=== PATIENT | female | born 1960 | race African-American/Black ===

== ENCOUNTER 2016-06-05 10:19 | Emergency (ER) | payer OTHER ==
[~2016-06-05] VITALS: Ht 157.5 cm; Wt 82.6 kg
[~2016-06-05 10:19] MED LIST: AMLO10TA2; CEPH500C; HYDR500T13; LISI40TA; PRAVASTATIN 40 MG; SULF-169
[2016-06-05] MEDS: LORazepam 0.5 MG TAB PO ONE (12:27)
[2016-06-05] MEDS: SODIUM CHLORIDE 0.9% 1,000 ML IV ONE (13:44)
[2016-06-05 15:00] LABS: Albumin 3.4 g/dL (3.4-5.0); Anion Gap 15 (5-15); Aspartate Aminotransferase 24 U/L (15-37); BUN/Creatinine Ratio 18.2; Blood Urea Nitrogen 20 mg/dL (7-18); Calcium 8.5 mg/dL (8.5-10.1); Carbon Dioxide 22 mmol/L (21-32); Chloride 114 mmol/L (98-107); GFR African American 66 mL/min; GFR Non-African American 54 mL/min; Glucose 138 mg/dL (74-106); Sodium 151 mmol/L (136-145)
[2016-06-05 15:02] LABS: Alkaline Phosphatase 71 U/L (45-117); Bilirubin, Total < 0.1 mg/dL (0.2-1.0); Total Protein 7.5 g/dL (6.4-8.2)
[2016-06-05 15:05] LABS: Basophils # (auto) 0 uL; Basophils % (auto) 0.8 % (0.0-2.0); Eosinophils # (auto) 0 uL; Eosinophils % (auto) 0.3 % (0.0-7.0); Hemoglobin 14.4 g/dL (12.2-16.2); Lymphocytes # (auto) 2.2 uL; Lymphocytes % (auto) 38.3 % (10.0-50.0); Mean Corpuscular Hemoglobin 31.8 pg (28.0-32.0); Mean Corpuscular Hgb Conc. 33.4 g/dL (32.0-36.0); Mean Corpuscular Volume 95.1 fL (80.0-100.0); Mean Platelet Volume 9.2 fL (7.4-10.4); Monocytes # (auto) 0.5 uL; Monocytes % (auto) 8.5 % (0.0-12.0); Neutrophils % (auto) 52.1 % (37.0-80.0); Platelet Count (auto) 297 10^3/uL (140-450); Red Cell Distribution Width 16.8 % (11.6-16.0); White Blood Cell 5.8 10^3/uL (4.4-10.8)
[2016-06-05 17:45] LABS: Urine Bilirubin Negative (Negative); Urine Blood Negative /uL (Negative); Urine Color Yellow (Yellow); Urine Glucose Normal (Normal); Urine Ketone Negative (Negative); Urine Mucus FEW (None Seen); Urine Nitrite Negative (Negative); Urine RBC <1 /hpf (0 - 4); Urine Squamous Epithelial Cell MOD /hpf (<5); Urine Urobilinogen Normal (Negative); Urine pH 5.5 (5.0-8.0)
[2016-06-05 19:52] VITALS: BP 140/74
== END 2016-06-05 21:43 | disposition home or self-care (01) ==
LOC: ER 10:27
DX: F10.120 Alcohol abuse with intoxication, uncomplicated (principal); M19.90 Unspecified osteoarthritis, unspecified site; E78.5 Hyperlipidemia, unspecified; I10 Essential (primary) hypertension; F17.210 Nicotine dependence, cigarettes, uncomplicated; D25.9 Leiomyoma of uterus, unspecified; Y90.9 Presence of alcohol in blood, level not specified; Z98.890 Other specified postprocedural states; Z90.89 Acquired absence of other organs
CPT/HCPCS: 36415; 80053; 80320; 80329; 81001; 85025; 96360; 96361; 99285; G0434

== ENCOUNTER 2017-02-10 15:01 | Observation (INO) | payer OTHER ==
[~2017-02-10] VITALS: Ht 165.1 cm; Wt 81.6 kg
[2017-02-10 15:58] LABS: Urine RBC None Seen /hpf (0 - 4)
[2017-02-10 16:37] LABS: Urine Bilirubin Negative (Negative); Urine Blood Negative /uL (Negative); Urine Color Yellow (Yellow); Urine Glucose Normal (Normal); Urine Hyaline Cast FEW /lpf (0 - 2); Urine Ketone Negative (Negative); Urine Mucus FEW (None Seen); Urine Nitrite Negative (Negative); Urine Squamous Epithelial Cell FEW /hpf (<5); Urine Urobilinogen Normal (Negative)
[2017-02-10] MEDS ORDERED: LORazepam 2MG/ML-1ML VIAL ONE (19:49)
[2017-02-10] MEDS ORDERED: LORazepam 2MG/ML-1ML VIAL IV ONE (20:00)
[2017-02-10] MEDS ORDERED: MVI in SODIUM CHLORIDE 0.9% 1,010 ML IV ONE (20:13)
[2017-02-10] MEDS ORDERED: THIAMINE HCL 100 MG/ML 2ML VIAL IV ONE (20:15)
[2017-02-10] MEDS ORDERED: MVI in SODIUM CHLORIDE 0.9% 1,010 ML ONE (20:27)
[2017-02-10] MEDS: MAGNESIUM SULFATE 1GM/100ML 100 ML IV SCH ×2 (20:30→21:38)
[2017-02-10 20:50] LABS: Basophils # (auto) 0 uL; Basophils % (auto) 0.7 % (0.0-2.0); Eosinophils # (auto) 0.1 uL; Eosinophils % (auto) 0.9 % (0.0-7.0); Hematocrit 40.9 % (36.0-46.0); Hemoglobin 13.3 g/dL (12.2-16.2); Lymphocytes # (auto) 2.7 uL; Lymphocytes % (auto) 46.3 % (10.0-50.0); Mean Corpuscular Hemoglobin 32.9 pg (28.0-32.0); Mean Corpuscular Hgb Conc. 32.6 g/dL (32.0-36.0); Mean Corpuscular Volume 100.9 fL (80.0-100.0); Mean Platelet Volume 8.7 fL (6.9-10.8); Monocytes # (auto) 0.5 uL; Monocytes % (auto) 9.1 % (0.0-12.0); Neutrophils # (auto) 2.6 uL; Nucleated Red Blood Cells % 0.1 %; Platelet Count (auto) 270 10^3/uL (140-450); Red Cell Distribution Width 18.6 % (11.8-14.3); White Blood Cell 5.9 10^3/uL (4.4-10.8)
[2017-02-10 20:59] LABS: Albumin 3.4 g/dL (3.4-5.0); Anion Gap 12 (5-15); Aspartate Aminotransferase 28 U/L (15-37); BUN/Creatinine Ratio 18.2; Blood Urea Nitrogen 22 mg/dL (7-18); Calcium 8.5 mg/dL (8.5-10.1); Carbon Dioxide 21 mmol/L (21-32); Chloride 116 mmol/L (98-107); GFR African American 59 mL/min; GFR Non-African American 49 mL/min; Glucose 86 mg/dL (74-106); Potassium 3.7 mmol/L (3.5-5.1); Sodium 149 mmol/L (136-145)
[2017-02-10 21:01] LABS: Acetaminophen < 2.0 ug/mL (10-30); Alkaline Phosphatase 62 U/L (45-117); Bilirubin, Total < 0.1 mg/dL (0.2-1.0); Salicylate 4.5 mg/dL (2.8-20.0); Total Protein 7.6 g/dL (6.4-8.2)
[2017-02-10] MEDS ORDERED: ONDANSETRON HCL 4 MG/2 ML VIAL ONE (21:43)
[2017-02-10] MEDS ORDERED: ONDANSETRON HCL 4 MG/2 ML VIAL IV ONE (22:00)
[2017-02-11] MEDS ORDERED: cefTRIAXone 1GM/50ML D5W 50 ML IV ONE (00:30)
[2017-02-11] MEDS ORDERED: LORazepam 2MG/ML-1ML VIAL IV ONE (03:30)
[2017-02-11 08:24] VITALS: BP 121/84
== END 2017-02-11 13:56 | disposition home or self-care (01) | DRG 775 ==
LOC: EDBD 15:01 → ER 15:21 → OVERFLOW 15:22 → ER 02-11 13:56
PROVIDERS: ADMIT Family Medicine; ATTEND Family Medicine
DX: F10.129 Alcohol abuse with intoxication, unspecified (principal); J18.9 Pneumonia, unspecified organism; I10 Essential (primary) hypertension; F17.210 Nicotine dependence, cigarettes, uncomplicated; Y90.8 Blood alcohol level of 240 mg/100 ml or more; Z82.3 Family history of stroke; Z82.49 Family history of ischemic heart disease and other diseases of the circulatory system
CPT/HCPCS: 36415; 70450; 71010; 80053; 80307; 80320; 80329; 81001; 85025; 96365; 96366; 96367; 96375; 96376; 99285; G0378; J2060; J2405; J3411; J3475

== ENCOUNTER 2017-03-28 08:17 | Emergency (ER) | payer OTHER ==
[~2017-03-28] VITALS: Ht 160 cm; Wt 81.6 kg
[2017-03-28 10:55] VITALS: BP 120/73
== END 2017-03-28 11:01 | disposition home or self-care (01) ==
LOC: EDBD 08:17 → ER 08:17
DX: R33.9 Retention of urine, unspecified (principal); M19.90 Unspecified osteoarthritis, unspecified site; E78.5 Hyperlipidemia, unspecified; I10 Essential (primary) hypertension; F17.210 Nicotine dependence, cigarettes, uncomplicated; Z90.89 Acquired absence of other organs
CPT/HCPCS: 51702

== ENCOUNTER 2017-08-25 09:01 | Emergency (ER) | payer OTHER ==
[~2017-08-25] VITALS: Ht 157.5 cm; Wt 49.9 kg
[2017-08-25 10:21] LABS: Basophils # (auto) 0 uL; Basophils % (auto) 0.7 % (0.0-2.0); Eosinophils # (auto) 0 uL; Eosinophils % (auto) 0.3 % (0.0-7.0); Hematocrit 41.7 % (36.0-46.0); Lymphocytes # (auto) 1.6 uL; Lymphocytes % (auto) 24.5 % (10.0-50.0); Mean Corpuscular Hgb Conc. 33.7 g/dL (32.0-36.0); Mean Corpuscular Volume 95.2 fL (80.0-100.0); Monocytes # (auto) 0.5 uL; Monocytes % (auto) 7.3 % (0.0-12.0); Neutrophils # (auto) 4.4 uL; Neutrophils % (auto) 67.2 % (37.0-80.0); Platelet Count (auto) 265 10^3/uL (140-450); Red Blood Cells 4.38 10^6/uL (4.0-5.20); Red Cell Distribution Width 16.2 % (11.8-14.3); White Blood Cell 6.5 10^3/uL (4.4-10.8)
[2017-08-25] MEDS ORDERED: SODIUM CHLORIDE 0.9% 1,000 ML IV ONE (10:26)
[2017-08-25] MEDS ORDERED: KETOROLAC TROMETH 30 MG/ML 1ML VIAL IV ONE (10:30)
[2017-08-25] MEDS ORDERED: PROMETHAZINE HCL 25 MG/ML 1ML IM ONE (10:30)
[2017-08-25] MEDS ORDERED: ASPirin 81 mg TAB PO ONE (10:30)
[2017-08-25 10:43] LABS: Alanine Aminotransferase 33 U/L (13-56); Alkaline Phosphatase 80 U/L (45-117); Anion Gap 9 (5-15); Aspartate Aminotransferase 21 U/L (15-37); Bilirubin, Total 0.3 mg/dL (0.2-1.0); Blood Urea Nitrogen 31 mg/dL (7-18); Calcium 9.4 mg/dL (8.5-10.1); Carbon Dioxide 24 mmol/L (21-32); Chloride 108 mmol/L (98-107); GFR African American 73 mL/min; GFR Non-African American 61 mL/min; Glucose 95 mg/dL (74-106); Magnesium 2.6 mg/dL (1.6-2.6); Potassium 4.1 mmol/L (3.5-5.1); Sodium 141 mmol/L (136-145); Total Protein 8.9 g/dL (6.4-8.2)
[2017-08-25] MEDS ORDERED: KETOROLAC TROMETH 60MG/2ML VIAL IM ONE (10:45)
[2017-08-25 11:47] LABS: Urine Bacteria MOD /hpf (None Seen); Urine Blood Negative /uL (Negative); Urine WBC 5 /hpf (0 - 5)
[2017-08-25 15:20] VITALS: BP 146/85
== END 2017-08-25 15:58 | disposition home or self-care (01) ==
LOC: ER 09:01
DX: R07.89 Other chest pain (principal); G89.29 Other chronic pain; I10 Essential (primary) hypertension; E78.5 Hyperlipidemia, unspecified; F17.210 Nicotine dependence, cigarettes, uncomplicated; M19.90 Unspecified osteoarthritis, unspecified site; Z79.82 Long term (current) use of aspirin
CPT/HCPCS: 36415; 71046; 80053; 81001; 83735; 84443; 84484; 85025; 85379; 93005; 94761; 96372; 99285; J1885

== ENCOUNTER 2018-12-10 19:38 | Emergency (ER) | payer OTHER ==
[~2018-12-10] VITALS: Ht 157.5 cm; Wt 72.6 kg
[~2018-12-10 19:38] MED LIST changes: +AMLO10TA13; -AMLO10TA2
[2018-12-10] MEDS ORDERED: SODIUM CHLORIDE 0.9% 1,000 ML IV ONE (21:00)
[2018-12-10 22:14] LABS: Basophils # (auto) 0 uL; Basophils % (auto) 0.6 % (0.0-2.0); Eosinophils # (auto) 0 uL; Eosinophils % (auto) 0.5 % (0.0-7.0); Hematocrit 41.5 % (36.0-46.0); Hemoglobin 14.2 g/dL (12.2-16.2); Lymphocytes # (auto) 2.7 uL; Lymphocytes % (auto) 45.8 % (10.0-50.0); Mean Corpuscular Hgb Conc. 34.3 g/dL (32.0-36.0); Mean Corpuscular Volume 96.3 fL (80.0-100.0); Monocytes # (auto) 0.5 uL; Monocytes % (auto) 8.7 % (0.0-12.0); Neutrophils # (auto) 2.7 uL; Neutrophils % (auto) 44.4 % (37.0-80.0); Nucleated Red Blood Cells % 0.2 %; Platelet Count (auto) 218 10^3/uL (140-450); Red Cell Distribution Width 15.7 % (11.8-14.3)
[2018-12-10 22:33] LABS: Albumin 3.3 g/dL (3.4-5.0); Calcium 8.7 mg/dL (8.5-10.1); Potassium 3.5 mmol/L (3.5-5.1)
[2018-12-10 22:38] LABS: BUN/Creatinine Ratio 15.3; Bilirubin, Total 0.1 mg/dL (0.2-1.0); Total Protein 7.7 g/dL (6.4-8.2)
[2018-12-10 23:03] LABS: Urine Bacteria NONE SEEN /hpf (None Seen); Urine Blood Negative /uL (Negative); Urine Hyaline Cast MANY /lpf (0 - 2); Urine Mucus FEW (None Seen); Urine Specific Gravity 1.018 (1.001-1.035); Urine WBC 4 /hpf (0 - 5)
[2018-12-10 23:14] LABS: Amphetamine Screen, Urine NEGATIVE (NEGATIVE); Barbiturate Scree,Urine NEGATIVE (NEGATIVE); Benzodiazephine Screen, Urine NEGATIVE (NEGATIVE); Cannabinoid Screen, Urine NEGATIVE (NEGATIVE); Cocaine Screen, Urine NEGATIVE (NEGATIVE); Opiate Scree,Urine POSITIVE (NEGATIVE); Phencyclidine Screen, Urine NEGATIVE (NEGATIVE)
[2018-12-11 03:15] VITALS: BP 118/75
== END 2018-12-11 03:59 | disposition home or self-care (01) ==
LOC: EDBD 19:38 → ER 19:43
DX: K59.00 Constipation, unspecified (principal); F10.129 Alcohol abuse with intoxication, unspecified; F19.90 Other psychoactive substance use, unspecified, uncomplicated; I10 Essential (primary) hypertension; E78.00 Pure hypercholesterolemia, unspecified; F17.210 Nicotine dependence, cigarettes, uncomplicated; Z90.89 Acquired absence of other organs; Z79.899 Other long term (current) drug therapy; Y90.7 Blood alcohol level of 200-239 mg/100 ml
CPT/HCPCS: 36415; 74176; 80053; 80307; 80320; 81001; 82150; 83690; 85025; 99284; J7030

== ENCOUNTER 2021-06-13 21:38 | Emergency (ER) | payer OTHER ==
[~2021-06-13] VITALS: Ht 157.5 cm; Wt 77.1 kg
[~2021-06-13 21:38] MED LIST changes: +AMLO-496; -AMLO10TA13; -LISI40TA; +LISI40TA11
[2021-06-13] MEDS ORDERED: LORazepam 2MG/ML-1ML VIAL IM ONE (22:00)
[2021-06-13] MEDS ORDERED: diphenhdrAMINE HCL 50 MG/1 ML VL IM ONE (22:00)
[2021-06-13] MEDS ORDERED: HALOPERIDOL LACTATE 5 MG/ML INJ VIAL IM ONE (22:00)
[2021-06-13 22:39] LABS: Urine WBC None Seen /hpf (0 - 5)
[2021-06-13 22:57] LABS: Urine Bacteria NONE SEEN /hpf (None Seen); Urine Blood Negative /uL (Negative); Urine Specific Gravity 1.003 (1.001-1.035)
[2021-06-13 23:21] LABS: Amphetamine Screen, Urine NEGATIVE (NEGATIVE); Barbiturate Scree,Urine NEGATIVE (NEGATIVE); Benzodiazephine Screen, Urine NEGATIVE (NEGATIVE); Cannabinoid Screen, Urine NEGATIVE (NEGATIVE); Cocaine Screen, Urine NEGATIVE (NEGATIVE); Opiate Scree,Urine NEGATIVE (NEGATIVE); Phencyclidine Screen, Urine NEGATIVE (NEGATIVE)
[2021-06-14] LABS: Basophils # (auto) 0.1 10 ^3/uL (0-0.2); White Blood Cell 7.2 10^3/uL (4.4-10.8)
[2021-06-14 00:01] LABS: Basophils % (auto) 1.1 % (0.0-2.0); Eosinophils # (auto) 0 10 ^3/uL (0-0.8); Eosinophils % (auto) 0.2 % (0.0-7.0); Hemoglobin 13.8 g/dL (12.2-16.2); Lymphocytes # (auto) 2.8 10 ^3/uL (0.4-5.4); Lymphocytes % (auto) 39.7 % (10.0-50.0); Mean Corpuscular Hemoglobin 33.3 pg (28.0-32.0); Mean Corpuscular Volume 101.1 fL (80.0-100.0); Monocytes # (auto) 0.5 10 ^3/uL (0-1.3); Monocytes % (auto) 7.5 % (0.0-12.0); Neutrophils # (auto) 3.7 10 ^3/uL (1.6-8.6); Neutrophils % (auto) 51.5 % (37.0-80.0); Nucleated Red Blood Cells % 0.1 %; Red Blood Cells 4.15 10^6/uL (4.0-5.20); Red Cell Distribution Width 13.3 % (11.8-14.3)
[2021-06-14 00:20] LABS: Albumin 3.5 g/dL (3.4-5.0); BUN/Creatinine Ratio 27.3; Calcium 9.1 mg/dL (8.5-10.1); Salicylate 3.9 mg/dL (2.8-20.0)
[2021-06-14 00:24] LABS: Bilirubin, Total 0.2 mg/dL (0.2-1.0); Total Protein 7.8 g/dL (6.4-8.2)
[2021-06-14 00:27] LABS: Acetaminophen < 2.0 ug/mL (10-30); Potassium 4.7 mmol/L (3.5-5.1)
[2021-06-14] MEDS ORDERED: chlordiazePOXIDE HCL 25 MG CAP PO ONE (12:15)
[2021-06-14] MEDS ORDERED: traMADol HCL 50 MG TAB PO ONE (19:00)
[2021-06-15] MEDS ORDERED: HYDROcodone-ACET 5/325MG TAB PO ONE (03:45)
[2021-06-15 07:46] VITALS: BP 141/101
== END 2021-06-15 10:34 | disposition left against medical advice (07) ==
LOC: EDBD 21:38 → ER 21:40
DX: F10.129 Alcohol abuse with intoxication, unspecified (principal); R45.851 Suicidal ideations; R45.1 Restlessness and agitation; F43.8 Other reactions to severe stress; I10 Essential (primary) hypertension; E78.5 Hyperlipidemia, unspecified; F17.210 Nicotine dependence, cigarettes, uncomplicated; Z90.89 Acquired absence of other organs; Z79.899 Other long term (current) drug therapy; Y90.8 Blood alcohol level of 240 mg/100 ml or more
CPT/HCPCS: 36415; 80053; 80307; 80320; 80329; 81001; 84443; 85025; 96372; 99285; J1200; J1630; J2060

== ENCOUNTER 2024-10-15 01:10 | Emergency (ER) | payer OTHER ==
[~2024-10-15] VITALS: Ht 167.6 cm; Wt 91.0 kg
[~2024-10-15 01:10] MED LIST changes: -AMLO-496; +AMLO1TAB23; -LISI40TA11; +LISI40TA16
[2024-10-15 01:44] LABS: Eosinophils # (auto) 0 10 ^3/uL (0-0.8); Lymphocytes # (auto) 2.8 10 ^3/uL (0.4-5.4); Nucleated Red Blood Cells % 0.1 %
[2024-10-15] MEDS: IPRATROPIUM BROM 0.5 MG/2.5ML INH SOL NEB ONE (01:44)
[2024-10-15] MEDS: ALBUTEROL SULF 2.5 MG/0.5ML(0.5%) NEB SOLN NEB ONE (01:44)
[2024-10-15 01:45] LABS: Basophils # (auto) 0.1 10 ^3/uL (0-0.2); Eosinophils % (auto) 0.4 % (0.0-7.0); Hematocrit 37.1 % (36.0-46.0); Hemoglobin 12.7 g/dL (12.2-16.2); Lymphocytes % (auto) 46.4 % (10.0-50.0); Mean Corpuscular Hgb Conc. 34.1 g/dL (32.0-36.0); Mean Corpuscular Volume 102.6 fL (80.0-100.0); Monocytes # (auto) 0.6 10 ^3/uL (0-1.3); Monocytes % (auto) 10.6 % (0.0-12.0); Neutrophils # (auto) 2.5 10 ^3/uL (1.6-8.6); Neutrophils % (auto) 41.6 % (37.0-80.0); Platelet Count (auto) 201 10^3/uL (140-450); Red Blood Cells 3.61 10^6/uL (4.0-5.20); Red Cell Distribution Width 15.6 % (11.8-14.3); White Blood Cell 6.1 10^3/uL (4.4-10.8)
--- NOTE | 2024-10-15 01:45 | ED.PDOC ---
SOB-HPI HPI Comments 64-year-old female came to ER via EMS for shortness a breath. Patient has history of hypertension, COPD, and chronic alcoholism. For the past few hours, patient has been having shortness a breath and wheezing which progressively worsening. Patient has been out of inhalers at home. Patient has been drinking heavily again today. Worsening of shortness a breath prompted patient to come to the emergency room. 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 History: Uterine Fibroids Family History Family History: No family hx of Heart [place], No family hx of HTN, No family hx of Stroke Social History Smoker: Cigarettes, Less Than 1 Pack/Day Alcohol: Heavy Drugs: Denies Drug Use Lives In: Home Constitutional: denies: chills, diaphoresis, fatigue, fever, malaise, sweats, weakness, others EENTM: denies: blurred vision, double vision, ear bleeding, ear discharge, ear drainage, ear pain, ear ringing, eye pain, eye redness, hearing loss, mouth pain, mouth swelling, nasal discharge, nose bleeding, nose congestion, nose pain, photophobia, tearing, throat pain, throat swelling, voice changes, others Respiratory: reports: cough, SOB at rest, shortness of breath, wheezing; denies: hemoptysis, orthopnea, SOB with excertion, stridor, others Cardiovascular: denies: chest pain, dizzy spells, diaphoresis, Dyspnea on exertion, edema, irregular heart beat, left arm pain, lightheadedness, palpitations, PND, syncope, others Gastrointestinal: denies: abdomen distended, abdominal pain, blood streaked bowels, constipated, diarrhea, dysphagia, difficulty swallowing, hematemesis, melena, nausea, poor appetite, poor fluid intake, rectal bleeding, rectal pain, vomiting, others Genitourinary: denies: abnormal vagina bleeding, burning, dyspareunia, dysuria, flank pain, frequency, hematuria, incontinence, pain, , vagina discharge, urgency, others Neurological: denies: dizziness, fainting, headache, left sided numbness, left sided weakness, numbness, paresthesia, pre-existing deficit, right sided numbness, right sided weakness, seizure, speech problems, tingling, tremors, weakness, others Musculoskeletal: denies: back pain, gout, joint pain, joint swelling, muscle pain, muscle stiffness, neck pain, others Integumetry: denies: bruises, change in color, change in hair/nails, dryness, laceration, lesions, lumps, rash, wounds, others Allergic/Immunocompromised: denies: Difficulty Healing, Frequent Infections, Hives, Itching, others Hematologic/Lymphatic: denies: anemia, blood clots, easy bleeding, easy bruising, swollen glands, others Endocrine: denies: excessive hunger, excessive sweating, excessive thirst, excessive urination, flushing, intolerance to cold, intolerance to heat, unexplained weight gain, unexplained weight loss, others Psychiatric: denies: anxiety, bipolar disorder, depression, hopeless, panic disorder, schizophrenia, sleepless, suicidal, others Physical Exam General Appearance: No Apparent Distress, Normal HEENT: Normal ENT Inspection, Pharynx Normal, TMs Normal Neck: Full Range of Motion, Non-Tender, Normal, Normal Inspection Respiratory: Chest Non-Tender, No Accessory Muscle Use, No Respiratory Distress, Wheezing Cardiovascular: No Edema, No JVD, No Murmur, No Gallop, Normal Peripheral Pulses, Regular Rate/Rhythm Breast Exam: Deferred Gastrointestinal: No Organomegaly, Non Tender, No Pulsatile Mass, Normal Bowel Sounds, Soft Genitalia: Deferred Pelvic: Deferred Rectal: Deferred Extremities: No calf tenderness, Normal capillary refill, Normal inspection, Normal range of motion, Non-tender, No pedal edema Musculoskeletal : Apperance: Normal Neurologic: Alert, hand drawer in II-XII nml as Tested, No Motor Deficits, Normal Affect, Normal Mood, No Sensory Deficits Cerebellar Function: Normal Reflexes: Normal Skin: Dry, Normal Color, Warm Lymphatic: No Adenopathy Was a procedure done? Was a procedure done?: No Differential Dx Differential Diagnosis: Asthma, Bronchitis, CHF, COPD, Myocardial infarction, Panic Attack, Pneumonia, Respiratory Distress X-Ray, Labs, Meds, VS Vital Signs Date Time Temp Pulse Resp B/P (MAP) Pulse Ox O2 Delivery O2 Flow Rate FiO2 10/15/24 05:20 82 18 142/84 (103) 92 10/15/24 03:00 72 22 94 Room Air* 0 21 10/15/24 02:55 98.1 87 18 135/82 (99) 93 98.1 10/15/24 01:44 20 95 Room Air* 0 21 10/15/24 01:28 96 10/15/24 01:18 97.9 98 24 148/90 (109) 96 97.9 Lab Test 10/15/24 01:33 Range/Units White Blood Count 6.1 4.4-10.8 10^3/uL Red Blood Count 3.61 L 4.0-5.20 10^6/uL Hemoglobin 12.7 12.2-16.2 g/dL Hematocrit 37.1 36.0-46.0 % Mean Corpuscular Volume 102.6 H 80.0-100.0 fL Mean Corpuscular Hemoglobin 35.0 H 28.0-32.0 pg Mean Corpuscular Hemoglobin Concent 34.1 32.0-36.0 g/dL Red Cell Distribution Width 15.6 H 11.8-14.3 % Platelet Count 201 140-450 10^3/uL Mean Platelet Volume 8.5 6.9-10.8 fL Neutrophils (%) (Auto) 41.6 37.0-80.0 % Lymphocytes (%) (Auto) 46.4 10.0-50.0 % Monocytes (%) (Auto) 10.6 0.0-12.0 % Eosinophils (%) (Auto) 0.4 0.0-7.0 % Basophils (%) (Auto) 1.0 0.0-2.0 % Neutrophils # (Auto) 2.5 1.6-8.6 10 ^3/uL Lymphocytes # (Auto) 2.8 0.4-5.4 10 ^3/uL Monocytes # (Auto) 0.6 0-1.3 10 ^3/uL Eosinophils # (Auto) 0 0-0.8 10 ^3/uL Basophils # (Auto) 0.1 0-0.2 10 ^3/uL Nucleated Red Blood Cells 0.1 % Sodium Level 149 H 136-145 mmol/L Potassium Level 3.8 3.5-5.1 mmol/L Chloride Level 119 H 98-107 mmol/L Carbon Dioxide Level 18 L 20-31 mmol/L Anion Gap 12 5-15 Blood Urea Nitrogen 14 9-23 mg/dL Creatinine 1.04 H 0.550-1.02 mg/dL Glomerular Filtration Rate Calc 59 >90 mL/min BUN/Creatinine Ratio 13.5 10.0-20.0 Serum Glucose 103 74-106 mg/dL Calcium Level 9.0 8.7-10.4 mg/dL Troponin I High Sensitivity 9 </=34 ng/L B-Type Natriuretic Peptide 51.93 0-100 pg/mL Current Medications Medications (Trade) Dose Ordered Sig/Rehana Route Start Time Stop Time Status Last Admin Albuterol (Ventolin Medneb) 2.5 mg ONCE ONCE [facility] 10/15/24 01:30 10/15/24 01:31 DC 10/15/24 01:44 Ipratropium [place] (Atrovent Medneb) 0.5 mg ONCE ONCE [facility] 10/15/24 01:30 10/15/24 01:31 DC 10/15/24 01:44 Time of 1ST Reevaluation: 01:41 Reevaluation 1ST: Unchanged Patient Education/Counseling: Diagnosis, Treatment Family Education/Counseling: No Family Present Departure 1 Departure Time of Disposition: 03:00 Impression: Primary Impression: COPD exacerbation Disposition: 01 HOME / SELF CARE / HOMELESS Condition: Stable e-Prescriptions Fluticasone-Salmeterol (Advair Diskus 500/50) 1 Puff Ih 1 PUFF INH BID for 90 Days, #1 INHALER 5 Refills Prov: KENDRA LOCK MD 10/15/24 Albuterol Sulfate (Albuterol Sulfate Hfa) 108 Mcg/Act Aer 108 MCG IN Q6HP PRN, #1 AER 5 Refills Prov: KENDRA LOCK MD 10/15/24 Discharged With: Self Critical Care Note Critical Care Time?: Yes (35 min-critical care time only) Critical care comment: Shortness a breath Stability Stability form required: No Heart Score Heart Score: Heart Score Response (Comments) Value History N/A 0 EKG N/A 0 Age N/A 0 Risk Factors N/A 0 Troponin N/A 0 Total 0 I personally scribed for KENDRA LOCK MD ([email or web address]) on 10/15/24 at 01:45. Electronically submitted by Derek Spear ([email or web address]). KENDRA LOCK MD Oct 15, 2024 01:45
[2024-10-15 02:09] LABS: Potassium 3.8 mmol/L (3.5-5.1)
[2024-10-15 02:10] LABS: Anion Gap 12 (5-15)
[2024-10-15 02:15] LABS: BUN/Creatinine Ratio 13.5 (10.0-20.0); Blood Urea Nitrogen 14 mg/dL (9-23); Carbon Dioxide 18 mmol/L (20-31); Chloride 119 mmol/L (98-107); Glucose 103 mg/dL (74-106); Sodium 149 mmol/L (136-145)
--- NOTE | 2024-10-15 02:15 | DVH ---
CHEST RADIOGRAPH Indication: SOB Technique: Single frontal view of the chest was obtained COMPARISON: XY CHEST XRAY 1 VIEW on DOS: 08/19/24 FINDINGS: The patient is rotated to the left and the bilateral costophrenic angles are excluded from the field- of-view. Lines and Tubes: None Lungs: Clear Pleura: No effusion. No pneumothorax. Cardiomediastinal contours: Unremarkable Bones: Unremarkable IMPRESSION: 1. No acute disease. 2. Suboptimal exam due to patient positioning and exclusion of the bilateral costophrenic angles.
[2024-10-15] MEDS ORDERED: ALBU108A5 IN (02:30)
[2024-10-15] MEDS ORDERED: FLUT500M2 INH (02:30)
[2024-10-15 03:00] VITALS: PULSE 72; RESP 22; O2SAT 94
--- NOTE | 2024-10-15 06:48 | ECG ---
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
[2024-10-15 07:20] VITALS: PULSE 102; RESP 16; O2SAT 86
== END 2024-10-15 10:14 | disposition home or self-care (01) ==
LOC: ER 01:10 → EDBD 01:10 → EDUNIT# 01:10 → ER 05:20
DX: J44.1 Chronic obstructive pulmonary disease with (acute) exacerbation (principal); F10.20 Alcohol dependence, uncomplicated; F17.210 Nicotine dependence, cigarettes, uncomplicated; E78.5 Hyperlipidemia, unspecified; I10 Essential (primary) hypertension; M19.90 Unspecified osteoarthritis, unspecified site; Z90.89 Acquired absence of other organs; Z98.890 Other specified postprocedural states; Y90.9 Presence of alcohol in blood, level not specified
CPT/HCPCS: 36415; 71045; 80048; 83880; 84484; 85025; 93005; 94640; 99291